=== PATIENT | female | born 1990 | race Two or more races ===

== ENCOUNTER 2017-10-29 19:13 | Emergency (ER) | payer MEDICAID, OTHER ==
[~2017-10-29] VITALS: Ht 160 cm; Wt 65.8 kg
[2017-10-29 20:10] LABS: Basophils # (auto) 0.1 uL; Basophils % (auto) 0.7 % (0.0-2.0); Eosinophils # (auto) 0.2 uL; Eosinophils % (auto) 2.4 % (0.0-7.0); Hematocrit 40.2 % (36.0-46.0); Hemoglobin 13.7 g/dL (12.2-16.2); Lymphocytes # (auto) 3.4 uL; Lymphocytes % (auto) 34.7 % (10.0-50.0); Mean Corpuscular Hemoglobin 31.3 pg (28.0-32.0); Mean Corpuscular Volume 91.9 fL (80.0-100.0); Monocytes # (auto) 0.6 uL; Monocytes % (auto) 6.2 % (0.0-12.0); Neutrophils # (auto) 5.5 uL; Nucleated Red Blood Cells % 0.1 %; Platelet Count (auto) 264 10^3/uL (140-450); Red Blood Cells 4.37 10^6/uL (4.0-5.20); White Blood Cell 9.9 10^3/uL (4.4-10.8)
[2017-10-29 20:22] LABS: Urine Amorphous Crystal MOD /hpf (None Seen); Urine Bacteria FEW /hpf (None Seen); Urine Blood 1+ /uL (Negative); Urine Mucus FEW (None Seen); Urine Specific Gravity 1.017 (1.001-1.035); Urine WBC 2 /hpf (0 - 5)
[2017-10-29 20:27] LABS: Albumin 4.1 g/dL (3.4-5.0); BUN/Creatinine Ratio 19.4; Calcium 9.1 mg/dL (8.5-10.1); Potassium 3.8 mmol/L (3.5-5.1)
[2017-10-29 20:30] LABS: Bilirubin, Total 0.3 mg/dL (0.2-1.0); Total Protein 7.8 g/dL (6.4-8.2)
[2017-10-30 01:50] VITALS: BP 145/119
[2017-10-30] MEDS ORDERED: SODIUM CHLORIDE 0.9% 1,000 ML IV ONE (02:30)
[2017-10-30] MEDS ORDERED: NALBUPHINE HCL 10 MG/1ml INJECTION IV ONE ×2 (02:30→03:00)
[2017-10-30] MEDS ORDERED: ONDANSETRON HCL 4 MG/2 ML VIAL IV ONE ×2 (02:30→03:00)
== END 2017-10-30 04:39 | disposition home or self-care (01) ==
LOC: ER 19:13
DX: K52.9 Noninfective gastroenteritis and colitis, unspecified (principal)
CPT/HCPCS: 36415; 74176; 80053; 81001; 81025; 82150; 83690; 85025; 96361; 96374; 96375; 99285; J2300; J2405; J7030

== ENCOUNTER 2018-07-28 18:55 | Emergency (ER) | payer OTHER ==
[~2018-07-28] VITALS: Ht 160 cm; Wt 65.8 kg
[2018-07-28 19:16] VITALS: BP 145/85
[2018-07-28] MEDS ORDERED: TETANUS-DIPTH-ACEL PERTUSSIS 0.5ML SYRG IM ONE (19:30)
[2018-07-29] MEDS ORDERED: cefTRIAXone SOD 1,000 MG VL IM ONE
== END 2018-07-29 01:29 | disposition home or self-care (01) ==
LOC: ER 18:55
DX: S61.551A Open bite of right wrist, initial encounter (principal); W55.01XA Bitten by cat, initial encounter; Y93.89 Activity, other specified; Y99.8 Other external cause status; Y92.89 Other specified places as the place of occurrence of the external cause
CPT/HCPCS: 90471; 90715; 96372; 99283; J0696

== ENCOUNTER 2021-06-24 05:38 | Emergency (ER) | payer OTHER ==
[~2021-06-24] VITALS: Ht 160 cm; Wt 68.0 kg
[2021-06-24 06:36] VITALS: BP 156/103
== END 2021-06-24 07:26 | disposition home or self-care (01) ==
LOC: ER 05:38
DX: H65.91 Unspecified nonsuppurative otitis media, right ear (principal); J02.9 Acute pharyngitis, unspecified; Z20.822 Contact with and (suspected) exposure to COVID-19
CPT/HCPCS: 36415; 71045; 87426

== ENCOUNTER 2025-07-21 16:17 | Emergency (ER) | payer BC, OTHER ==
[~2025-07-21] VITALS: Ht 160 cm; Wt 73.2 kg
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
[2025-07-21 21:09] VITALS: BP 143/92; TEMP 98.4
[2025-07-21 21:10] VITALS: PULSE 75; RESP 14; O2SAT 99
== END 2025-07-21 21:13 | disposition home or self-care (01) ==
LOC: ER 16:17
DX: O26.891 Other specified pregnancy related conditions, first trimester (principal); R10.9 Unspecified abdominal pain; R51.9 Headache, unspecified; Z3A.09 9 weeks gestation of pregnancy; V43.62XA Car passenger injured in collision with other type car in traffic accident, initial encounter; Y93.I9 Activity, other involving external motion; Y92.488 Other paved roadways as the place of occurrence of the external cause; Y99.8 Other external cause status
CPT/HCPCS: 76801